=== PATIENT | male | born 1975 | race African-American/Black ===

== ENCOUNTER 2018-03-11 11:42 | Emergency (ER) | payer SELFPAY | END 2018-03-11 12:48 | disposition home or self-care (01) | LOC: ERS 11:42 | DX: H00.014 Hordeolum externum left upper eyelid (principal) | CPT/HCPCS: 99283 ==

== ENCOUNTER 2018-05-23 07:27 | Emergency (ER) | payer SELFPAY ==
[2018-05-23] MEDS ORDERED: Dexamethasone 10 MG/ML VIAL ONE (08:28)
[2018-05-23] MEDS ORDERED: Bicillin LA 2.4 MILL.UNITS/4 ML SYRINGE ONE (08:28)
[2018-05-23] MEDS ORDERED: Bicillin LA 1.2 MILLION UNITS/2 ML SYRINGE ONE (08:30)
== END 2018-05-23 08:44 | disposition home or self-care (01) ==
LOC: ERS 07:27
DX: J02.0 Streptococcal pharyngitis (principal); I10 Essential (primary) hypertension
CPT/HCPCS: 87430; 96372; J0561; J1100

== ENCOUNTER 2021-04-20 13:17 | Emergency (ER) | payer SELFPAY ==
[2021-04-21 16:15] LABS: SARS-CoV-2 PCR by NAA DETECTED (NotDetected)
== END 2021-04-20 14:41 | disposition home or self-care (01) ==
LOC: ERS 13:17
DX: U07.1 COVID-19 (principal)
CPT/HCPCS: 71045; 93005; U0003; U0005